=== PATIENT | female | born 1950 | race Caucasian/White ===

== ENCOUNTER 2021-07-14 16:02 | Emergency (ER) | payer SELFPAY ==
[2021-07-14 16:43] VITALS: BP 180/109; PULSE 103; TEMP 99.5; BMI 27.6
[2021-07-14 17:33] LABS: EOS % 1.1 % (0-4.5); HEMATOCRIT 41.1 % (32.4-45.2); HEMOGLOBIN 14.1 GM/dL (10.7-15.3); LYMPH % 19.7 % (8-40); MCH 29.9 pg (25.7-33.7); MCHC 34.1 g/dl (32.0-36.0); MEAN CELL VOLUME 87.7 fl (80-96); MEAN PLT VOLUME 9.1 fl (7.5-11.1); MONO % 9.9 % (3.8-10.2); NEUT % 68.3 % (42.8-82.8); PLATELET COUNT 220 10^3/uL (134-434); RBC 4.69 M/mm3 (3.60-5.2); RDW 13.1 % (11.6-15.6); WHITE BLOOD COUNT 8.3 K/mm3 (4.0-10.0)
[2021-07-14 17:39] LABS: INR 1.25 (0.83-1.09)
[2021-07-14 17:42] LABS: ACTIVATED PTT 32.6 SECONDS (25.2-36.5)
[2021-07-14 17:48] LABS: CHLORIDE 101 mmol/L (98-107); SODIUM 136 mmol/L (136-145)
[2021-07-14 17:50] LABS: CALCIUM 9.2 mg/dL (8.5-10.1)
[2021-07-14 17:51] LABS: ALBUMIN 3.8 g/dl (3.4-5.0); ANION GAP 8 MMOL/L (8-16); CO2 27 mmol/L (21-32); GLUCOSE,RANDOM 98 mg/dL (74-106)
[2021-07-14 17:53] LABS: SGOT/AST 35 U/L (15-37)
[2021-07-14 17:54] LABS: CHOLESTEROL 250 mg/dL (50-200); CREATININE 0.9 mg/dL (0.55-1.3); SGPT/ALT 50 U/L (13-61); TRIGLYCERIDES 103 mg/dL (0-150)
[2021-07-14 17:55] LABS: BILIRUBIN,TOTAL 0.8 mg/dL (0.2-1); LDL CHOLESTEROL (ONLY SJRH) 152 mg/dL (5-100); TOT PROT 7.7 g/dl (6.4-8.2)
[2021-07-14 17:56] LABS: ALK PHOS 90 U/L (45-117); HDL CHOLESTEROL 67 mg/dL (40-60)
== END 2021-07-14 19:50 | disposition home or self-care (01) ==
LOC: JER 16:02
DX: G45.9 Transient cerebral ischemic attack, unspecified (principal)
CPT/HCPCS: 36415; 70450-TC; 80053; 80061; 82550; 82962; 83036; 84484; 85025; 85610; 85730; 86850; 86900; 86901; 93005; 93010; 99285-25

== ENCOUNTER 2021-07-15 20:23 | Inpatient (IN) | payer OTHER ==
[2021-07-15 20:35] VITALS: BMI 28.4
[2021-07-15] MEDS ORDERED: SODIUM CHLORIDE 1,000 ML IV SCH (22:30)
[2021-07-15] MEDS ORDERED: ATORVASTATIN CA 40 MG TABLET (FP) PO ONE (23:05)
[2021-07-15] MEDS ORDERED: ASPIRIN 81 MG CHEWABLE TABLETS PO ONE (23:05)
[2021-07-15 23:08] LABS: BASO % 0.7 % (0-2.0); EOS % 2.2 % (0-4.5); HEMATOCRIT 40.1 % (32.4-45.2); HEMOGLOBIN 13.5 GM/dL (10.7-15.3); LYMPH % 21.1 % (8-40); MCH 29.4 pg (25.7-33.7); MCHC 33.8 g/dl (32.0-36.0); MEAN CELL VOLUME 87.1 fl (80-96); MEAN PLT VOLUME 9.1 fl (7.5-11.1); PLATELET COUNT 214 10^3/uL (134-434); WHITE BLOOD COUNT 8.9 K/mm3 (4.0-10.0)
[2021-07-15 23:13] LABS: INR 1.12 (0.83-1.09); PROTHROMBIN TIME (PATIENT) 13.1 SEC (9.7-13.0)
[2021-07-15] MEDS ORDERED: ASPIRIN 81 MG CHEWABLE TABLETS ONE (23:13)
[2021-07-15] MEDS ORDERED: ATORVASTATIN CA 40 MG TABLET (FP) ONE (23:13)
[2021-07-15 23:16] LABS: ACTIVATED PTT 27.4 SECONDS (25.2-36.5)
[2021-07-15 23:25] LABS: CHLORIDE 100 mmol/L (98-107); SODIUM 133 mmol/L (136-145)
[2021-07-15 23:28] LABS: ALBUMIN 3.6 g/dl (3.4-5.0)
[2021-07-15 23:29] LABS: ANION GAP 8 MMOL/L (8-16); BLOOD UREA NITROGEN 25.2 mg/dL (7-18); CO2 26 mmol/L (21-32); GLUCOSE,RANDOM 107 mg/dL (74-106)
[2021-07-15 23:31] LABS: CHOLESTEROL 240 mg/dL (50-200); SGOT/AST 27 U/L (15-37); SGPT/ALT 44 U/L (13-61); TRIGLYCERIDES 109 mg/dL (0-150)
[2021-07-15 23:32] LABS: CREATININE 1.1 mg/dL (0.55-1.3); LDL CHOLESTEROL (ONLY SJRH) 148 mg/dL (5-100)
[2021-07-15 23:33] LABS: BILIRUBIN,TOTAL 0.7 mg/dL (0.2-1); TOT PROT 7.4 g/dl (6.4-8.2)
[2021-07-15 23:34] LABS: ALK PHOS 83 U/L (45-117); HDL CHOLESTEROL 62 mg/dL (40-60)
[2021-07-16] MEDS ORDERED: ACETAMINOPHEN 500 MG TABLET (FP) PO ONE (00:48)
[2021-07-16] MEDS ORDERED: ACETAMINOPHEN 325 MG TABLET (FP) ONE (01:23)
[2021-07-16 07:32] VITALS: TEMP 97.9
[2021-07-16 07:57] LABS: BASO % 0.9 % (0-2.0); EOS % 2.7 % (0-4.5); HEMATOCRIT 38.4 % (32.4-45.2); HEMOGLOBIN 13.1 GM/dL (10.7-15.3); LYMPH % 20.5 % (8-40); MCH 29.9 pg (25.7-33.7); MCHC 34.2 g/dl (32.0-36.0); MEAN CELL VOLUME 87.3 fl (80-96); MEAN PLT VOLUME 9.1 fl (7.5-11.1); NEUT % 65.9 % (42.8-82.8); PLATELET COUNT 197 10^3/uL (134-434); RDW 13.1 % (11.6-15.6); WHITE BLOOD COUNT 7.2 K/mm3 (4.0-10.0)
[2021-07-16 08:23] LABS: ALBUMIN 3.2 g/dl (3.4-5.0); BLOOD UREA NITROGEN 18.4 mg/dL (7-18); CREATININE 0.7 mg/dL (0.55-1.3); PHOSPHOROUS 4.3 mg/dL (2.5-4.9)
[2021-07-16 08:25] LABS: BILIRUBIN,TOTAL 0.8 mg/dL (0.2-1); TOT PROT 6.7 g/dl (6.4-8.2)
[2021-07-16 08:26] LABS: CALCIUM 8.7 mg/dL (8.5-10.1); MAGNESIUM 2.3 mg/dL (1.8-2.4)
[2021-07-16] MEDS ORDERED: ASPIRIN 81 MG CHEWABLE TABLETS PO SCH (10:00)
[2021-07-16] MEDS ORDERED: ENOXAPARIN NA (PORCINE) 40 MG/0.4 ML DISP.SYRIN SQ SCH (10:00)
[2021-07-16] MEDS ORDERED: ASPIRIN 81 MG CHEWABLE TABLETS ONE (10:55)
[2021-07-16] MEDS ORDERED: ENOXAPARIN NA (PORCINE) 40 MG/0.4 ML DISP.SYRIN SQ ONE (10:56)
[2021-07-16 16:45] VITALS: BP 141/97; PULSE 96
[2021-07-16] MEDS ORDERED: ATORVASTATIN CA 40 MG TABLET (FP) PO SCH (22:00)
== END 2021-07-16 19:01 | disposition home or self-care (01) | DRG 47 ==
LOC: JER 20:23 → JERBED 23:22
PROVIDERS: ADMIT Internal Medicine; ATTEND Internal Medicine
DX: G45.9 Transient cerebral ischemic attack, unspecified (principal); I10 Essential (primary) hypertension; J98.11 Atelectasis; R47.1 Dysarthria and anarthria
CPT/HCPCS: 36415; 70450-TC; 70551-TC; 71046-TC-FY; 80053; 80061; 82550; 83036; 83735; 84100; 84443; 84484; 85025; 85610; 85651; 85730; 86140; 86850; 86900; 86901; 87804; 87807; 93005; 93010; 93306-TC; 93880-TC; 99285-25; C9803; U0003; U0005